=== PATIENT | female | born 1975 ===

== ENCOUNTER 2017-12-01 13:12 | Outpatient (CLI) | payer OTHER | END 2017-12-01 13:23 | disposition home or self-care (01) | LOC: RAD 13:12 | DX: S92.812A Other fracture of left foot, initial encounter for closed fracture (principal) ==

== ENCOUNTER 2020-02-11 13:15 | Outpatient (CLI) | payer OTHER | END 2020-02-11 15:00 | disposition home or self-care (01) | LOC: PPH VACUNA 13:15 | DX: Z23 Encounter for immunization (principal) ==

== ENCOUNTER 2021-08-24 09:19 | Outpatient (CLI) | payer OTHER | END 2021-08-24 09:35 | disposition home or self-care (01) | LOC: SONOGRAMA 09:19 | PROVIDERS: ATTEND General Practice | DX: E06.3 Autoimmune thyroiditis (principal); E03.8 Other specified hypothyroidism; E04.2 Nontoxic multinodular goiter; E55.9 Vitamin D deficiency, unspecified; E56.8 Deficiency of other vitamins ==

== ENCOUNTER 2022-10-16 10:27 | Outpatient (CLI) | payer OTHER | END 2022-10-16 10:36 | disposition home or self-care (01) | LOC: SONOGRAMA 10:27 | PROVIDERS: ATTEND Internal Medicine Gastroenterology | DX: R10.11 Right upper quadrant pain (principal) ==

== ENCOUNTER 2024-08-06 08:37 | Outpatient (CLI) | payer OTHER | END 2024-08-06 08:51 | disposition home or self-care (01) | LOC: SONOGRAMA 08:37 | PROVIDERS: ATTEND General Practice | DX: E06.3 Autoimmune thyroiditis (principal); E03.8 Other specified hypothyroidism; E04.2 Nontoxic multinodular goiter; E55.9 Vitamin D deficiency, unspecified; E04.0 Nontoxic diffuse goiter ==